=== PATIENT | male | born 1975 | race American Indian/Alaskan Native ===

== ENCOUNTER 2018-11-05 06:52 | Emergency (ER) | payer BC, OTHER ==
[2018-11-05 07:02] VITALS: BP 140/88; PULSE 65; RESP 20; TEMP 98.5; O2SAT 97
--- NOTE | 2018-11-05 07:38 | C.PDOC ---
History Of Present Illness 43 y/o male presents to the ER complaining of pruritus to the penis for the past few days. Patient states that he was shaving the area. Patient denies having penile discharge, fever, and chills. Time Seen by Provider: 11/05/18 07:17 Chief Complaint (Nursing): Male Genitourinary History Per: Patient History/Exam Limitations: no limitations Onset/Duration Of Symptoms: Days Current Symptoms Are (Timing): Still Present Severity: Moderate Past Medical History Reviewed: Historical Data, Nursing Documentation, Vital Signs Vital Signs: Last Vital Signs Temp 98.5 F 11/05/18 06:59 Pulse 65 11/05/18 06:59 Resp 20 11/05/18 06:59 BP 140/88 11/05/18 06:59 Pulse Ox 97 11/05/18 06:59 - Medical History PMH: No Chronic Diseases Surgical History: No Surg Hx - [facility] Procedures CLOSURE SKIN & SUBCUTANEOUS NEC (05/19/14) Family History: States: No Known Family Hx - Social History Hx Tobacco Use: No Hx Alcohol Use: Yes Hx Substance Use: No - Immunization History Hx Tetanus Toxoid Vaccination: Yes Hx Influenza Vaccination: No Hx Pneumococcal Vaccination: No Review Of Systems Except As Marked, All Systems Reviewed And Found Negative. Constitutional: Negative for: Fever, Chills Genitourinary: Positive for: Other (itching to penis) Physical Exam - Physical Exam Appears: Non-toxic Skin: Normal Color, Warm, Dry Head: Atraumatic, Normacephalic Eye(s): bilateral: Normal Inspection Nose: Normal Oral Mucosa: Moist Neck: Supple Chest: Symmetrical Cardiovascular: Rhythm Regular Respiratory: Normal Breath Sounds, No Rales, No Rhonchi, No Wheezing Gastrointestinal/Abdominal: Normal Exam, Soft, No Tenderness, No Guarding, No Rebound Male Genital: Other (small abrasion to the base of penis, no erythema, no swelling, no rash, no signs of infection) Neurological/Psych: Oriented x3, Normal Speech ED Course And Treatment O2 Sat by Pulse Oximetry: 97 (RA) Pulse Ox Interpretation: Normal Disposition - Disposition Referrals: Nixon Eid MD [Staff Provider] - Disposition: HOME/ ROUTINE Disposition Time: 07:38 Condition: STABLE Additional Instructions: Follow up with Urologist if not better within 2-3 days. Return to ED if feel worse. Prescriptions: Bacitracin OINT 1 applic TP TID #45 g Instructions: Skin Abrasions (DC) Forms: Definition 6 Connect (Croatian) - Clinical Impression Clinical Impression: Abrasion - PA / IT INFRASTRUCTURE MANAGER / Resident Statement MD/DO has reviewed & agrees with the documentation as recorded. - Scribe Statement The provider has reviewed the documentation as recorded by the Scribe Suze Madden Provider Attestation All medical record entries made by the Scribe were at my direction and personally dictated by me. I have reviewed the chart and agree that the record accurately reflects my personal performance of the history, physical exam, medical decision making, and the department course for this patient. I have also personally directed, reviewed, and agree with the discharge instructions and disposition.
== END 2018-11-05 07:54 | disposition home or self-care (01) ==
LOC: C.ER 06:52
DX: S30.812A Abrasion of penis, initial encounter (principal); X58.XXXA Exposure to other specified factors, initial encounter